=== PATIENT | female | born 1950 | race Caucasian/White ===

== ENCOUNTER 2016-12-07 09:48 | Day surgery (SDC) | payer BC ==
[2016-12-03 12:13] VITALS: BMI 24.2
[2016-12-07] MEDS ORDERED: PROPOFOL 20 ML ONE ×5 (11:15→12:15)
[2016-12-07] MEDS ORDERED: SUCCINYLCHOLINE CHLORIDE 200 MG/10 ML VIAL ONE (11:16)
[2016-12-07] MEDS ORDERED: CLINDAMYCIN PHOSPHATE 600 MG/4 ML VIAL ONE (11:48)
[2016-12-07] MEDS ORDERED: ACETAMINOPHEN 500 MG TABLET (FP) PO PRN (13:04)
[2016-12-07] MEDS ORDERED: oxyCODONE HCL 5 MG TABLET PO PRN (13:11)
[2016-12-07] MEDS ORDERED: ONDANSETRON 4 MG/2 ML VIAL IVPUSH PRN (13:11)
[2016-12-07] MEDS ORDERED: LACTATED RINGERS SOLUTION 1,000 ML IV SCH (13:15)
[2016-12-07] MEDS ORDERED: ONDANSETRON 4 MG/2 ML VIAL ONE (13:24)
[2016-12-07] MEDS: LABETALOL HCL 5 MG/1 ML (100MG/20 ML VIAL) IVPUSH ONE ×3 (13:43→14:03)
[2016-12-07] MEDS ORDERED: LABETALOL HCL 5 MG/1 ML (100MG/20 ML VIAL) ONE (13:45)
[2016-12-07 15:19] VITALS: BP 158/89; PULSE 67; TEMP 97.8
--- NOTE | 2016-12-08 15:14 | OP ---
DATE OF OPERATION: 12/07/2016 PREOPERATIVE DIAGNOSIS: Nasolabial obstruction with epiphora right. POSTOPERATIVE DIAGNOSIS: Nasolabial obstruction with epiphora right. PROCEDURE: 1. Dacryocystorhinostomy, right. 2. Lacrimal sac biopsy. 3. Partial ethmoidectomy. 4. Silicone intubation, right lacrimal system. 5. Endoscopy. SURGEON: Huseyin Cormier MD POLICY SERVICES REPRESENTATIVE: None. ANESTHESIA: Local with sedation. COMPLICATONS: None. ESTIMATED BLOOD LOSS: 20-30 mL. OPERATION REPORT: Patient was brought to the operating room, placed on the operating room table. Vital signs monitored by Anesthesia. Tetracaine was placed in both eyes. A tear trough incision was marked on the right side. Patient had been marked in the holding area. After time-out was performed, a 50/50 mixture of 2% Xylocaine with 1:100,000 epinephrine and 0.5% Marcaine was injected in the tear trough, anterior lacrimal crest, dorsal nasal artery, the nasal of the upper and lower lid as well as intranasally 2% Xylocaine with 1:100,000 epinephrine under direct visualization. The middle meatus, middle turbinate, , and external nares. Face and the right nose was prepped with Cottonoid and moistened with Afrin, and the patient was prepped and draped in the usual sterile fashion exposing nose on the right and the right and left eyes. Incision was made in the tear trough down to skin and subcutaneous tissue, with gentle spreading this was carried down to the nasal lacrimal crest. The anterior limb of the nasal canthal tendon was identified. Periosteum was now incised over the anterior lacrimal crest including part of the anterior limb of the medial canthal tendon. Periosteum was reflected laterally, exposing the lacrimal sac fossa back to the posterior lacrimal crest. Lacrimal fossa was penetrated with a hemostat, and following that, the upbiting Kerrison rongeurs were used to create an osteotomy centered on the anterior lacrimal crest extending to the medial canthal tendon to the nasolacrimal duct. There was bleeding. The nasal mucosa was injected with 2% Xylocaine with 1:100,000 epinephrine. Bone wax was used on the bleeding bone edges which suggested almost pagetoid kind of bleeding because it was somewhat more than usual, but it was controlled with bone wax. Cottonoids with thrombin were used for hemostasis, and then the upper and lower puncta were intubated and dilated, and there was significant restriction at attempted entrance of the probe into the lacrimal sac. The sac was tented nasally and intubated. The medial wall of the sac was opened with a 12 blade. Anterior and posterior lacrimal sac flaps were created and a lacrimal sac biopsy was sent. The ethmoid air cells posterior to the lacrimal sac were extubated with pituitary forceps, and once the sac was opened, the probe still did not enter the sac because there was significant scarring at the . The scar tissue in this area was excised, then dilated. The internal common canaliculus was dilated, and the probe was able to pass through at this point into the middle meatus. The packing was removed. The nasal mucosa was opened vertically, and an anterior nasal mucosal flap was created. Relaxing incision was performed . Nasal mucosa appeared thickened, and therefore it was biopsied, as well. After the were then passed into the upper and lower puncta, retrieved in the middle meatus with a Urena hook and put out through the right external naris. Antibiotic irrigation was used throughout the case. There was, as I noted,20-30 mL of blood, which was sucked out using suction, and hemostasis was reasonable at this point, seemed to be pretty well controlled. The anterior lacrimal sac flap was secured to the anterior nasal mucosal flap with mattress 4-0 chromic suture and additional interrupted 4-0 chromic suture creating an internal fistula, and the subcuticular tissues were closed with 5-0 chromic, and the skin was closed with 6-0 plain running suture. The stents were removed from the probes, and the stents were tied with locking knots and secured to the right external naris with a single 6-0 Prolene suture. Bacitracin ointment was placed on the sutures, Afrin was sprayed in the nose. The endoscope was first introduced. The nose was suctioned out, and good clearance of the internal ostium with any terminator septum was identified, and there was good hemostasis at this point. After this, Afrin was sprayed in the nose, and the patient was taken to the recovery room in stable condition. HUSEYIN CORMIER M.D. [id number]
--- NOTE | 2016-12-09 15:23 | PATH ---
Surgical Pathology Report Patient Name: MIAN VOGT [facility]. Rec. #: [id number] /Age/Gender: 1950 (Age: 66) / F Account: [id number] Location: [facility] Taken: 12/07/2016 Received: 12/07/2016 Reported: 12/09/2016 Physicians: Franklin Mario Specimen(s) Received A: NASAL MUCOSAL BX B: LACRIMAL SAC BX C: BONE Clinical History Blocked tear duct Final Diagnosis A. NASAL MUCOSA, BIOPSY: NASAL (RESPIRATORY-TYPE) MUCOSA SHOWING MILD CHRONIC INFLAMMATION AND FIBROSIS. B. LACRIMAL SAC, BIOPSY: BONE WITH NO PATHOLOGIC FINDINGS. NO LACRIMAL SAC TISSUE IS IDENTIFIED. C. BONE, BIOPSY: BONE WITH NO PATHOLOGIC FINDINGS. Electronically Signed Letty Smith M.D. Gross Description A. Received in formalin labeled "nasal mucosal biopsy," is a 0.3 cm in greatest dimension wilson, irregular portion of soft tissue which is submitted in toto in one cassette. B. Received in formalin labeled "lacrimal sac biopsy," are 2 wilson, irregular portions of possible bone measuring 0.3 and 0.4 cm in greatest dimension. The specimens are submitted in toto in one cassette, following decalcification. C. Received in formalin labeled "bone," is a 0.6 x 0.5 x 0.2 cm aggregate of wilson bone fragments. The specimen is submitted in toto in one cassette, following decalcification. 12/08/201612/08/2016
== END 2016-12-07 15:18 | disposition home or self-care (01) ==
LOC: FASU 09:48
PROVIDERS: ATTEND Ophthalmology
PROC: 09BU0ZZ Excision of Right Ethmoid Sinus, Open Approach (ICD-10-PCS; 2016-12-07)
PROC: 0WJQ8ZZ Inspection of Respiratory Tract, Via Natural or Artificial Opening Endoscopic Approach (ICD-10-PCS; 2016-12-07)
PROC: 081X0Z3 Bypass Right Lacrimal Duct to Nasal Cavity, Open Approach (ICD-10-PCS; principal; 2016-12-07 11:55)
DX: H04.211 Epiphora due to excess lacrimation, right lacrimal gland (principal)
CPT/HCPCS: 88304-TC; 88305-TC; 88311-TC; 94760